=== PATIENT | male | born 1980 | race Caucasian/White ===

== ENCOUNTER 2019-08-09 02:43 | Emergency (ER) | payer BC ==
[2019-08-09] MEDS ORDERED: Diphtheria,Pertussis(Acell),Tetanus Vaccine 0.5 ML Syringe IM ONE (02:47)
[2019-08-09] MEDS ORDERED: ceFAZolin 1 GM Vial IM ONE (02:47)
--- NOTE | 2019-08-09 02:52 | EDM.PDOC ---
ED HPI GENERAL MEDICAL PROBLEM - General Chief Complaint: Skin Complaint Stated Complaint: PUNCTURE WOUND IN LEFT HAND Time Seen by Provider: 08/09/19 02:50 - History of Present Illness INITIAL COMMENTS - FREE TEXT/NARRATIVE: HISTORY AND PHYSICAL: History of present illness: Patient 39-year-old male presents status post left hand injury that occurred from a cathode washer is a solitary wound to the dorsal aspect of his left hand. He denies other trauma concern tetanus status is to be determined Review of systems: As per history of present illness and below otherwise all systems reviewed and negative. Past medical history: As per history of present illness and as reviewed below otherwise noncontributory. Surgical history: As per history of present illness and as reviewed below otherwise noncontributory. Social history: No reported history of drug or alcohol abuse. Family history: As per history of present illness and as reviewed below otherwise noncontributory. Physical exam: HEENT: Atraumatic, normocephalic, pupils reactive, negative for conjunctival pallor or scleral icterus, mucous membranes moist, throat clear, neck supple, nontender, trachea midline. Lungs: Clear to auscultation, breath sounds equal bilaterally, chest nontender. Heart: S1S2, regular, negative for clicks, rubs, or JVD. Abdomen: Soft, nondistended, nontender. Negative for masses or hepatosplenomegaly. Negative for costovertebral tenderness. Pelvis: Stable nontender. Genitourinary: Deferred. Rectal: Deferred. Extremities: Isolated wound noted on the dorsal aspect just inferior to the first interdigital space this wound is approximately 2 mm there is good hemostasis noted tendon dysfunction no significant edema noted at this time CMS neurovascular exam is unremarkable Neuro: Awake, alert, oriented. Cranial nerves II through XII unremarkable. Cerebellum unremarkable. Motor and sensory unremarkable throughout. Exam nonfocal. Diagnostics: X-ray left hand Therapeutics: Tetanus was updated Ancef 1 g was given IM wound was irrigated with copious amounts 0.9 normal saline and dressed with a occlusive universal hand dressing Impression: #1 left hand injury Definitive disposition and diagnosis as appropriate pending reevaluation and review of above. - Related Data Allergies Allergy/AdvReac Type Severity Reaction Status Date / Time No Known Allergies Allergy Verified 08/09/19 02:55 Home Meds: Home Meds . [No Known Home Meds] 08/09/19 [History] ED ROS GENERAL - Review of Systems Review Of Systems: ROS reveals no pertinent complaints other than HPI. ED EXAM, SKIN/RASH Exam: See Below (See dictation) Course - Vital Signs Last Recorded V/S: Last Vital Signs Temp 36.3 C 08/09/19 02:43 Pulse 91 08/09/19 02:43 Resp 18 08/09/19 02:43 BP 137/77 08/09/19 02:43 Pulse Ox 96 08/09/19 02:43 - Orders/Labs/Meds Orders: Active Orders 24 hr Category Date Time Status Vaccines to be Administered [RC] PER UNIT ROUTINE Care 08/09/19 02:47 Active Hand Comp Min 3V Lt [CR] Stat Exams 08/09/19 02:51 Taken Meds: Medications Discontinued Medications Generic Name Dose Route Start Last Admin Trade Name Bruce PRN Reason Stop Dose Admin Cefazolin Sodium 1 gm 08/09/19 02:47 08/09/19 03:13 Ancef IM 08/09/19 02:48 1 gm ONETIME ONE Administration Diphtheria/Tetanus/Acell Pertussis 0.5 ml 08/09/19 02:47 08/09/19 03:10 Adacel IM 08/09/19 02:48 0.5 ml .ONCE ONE Administration Sterile Water Confirm 08/09/19 02:55 08/09/19 03:14 Sterile Water For Injection Administered 08/09/19 02:56 2.5 mls/hr Dose Administration 20 mls @ as directed .ROUTE .STK-MED ONE Departure - Departure Time of Disposition: 03:37 Disposition: Home, Self-Care 01 Condition: Good Clinical Impression: Hand injury - Discharge Information Forms: ED Department Discharge Additional Instructions: The following information is given to patients seen in the emergency department who are being discharged to home. This information is to outline your options for follow-up care. We provide all patients seen in our emergency department with a follow-up referral. The need for follow-up, as well as the timing and circumstances, are variable depending upon the specifics of your emergency department visit. If you don't have a primary care physician on staff, we will provide you with a referral. We always advise you to contact your personal physician following an emergency department visit to inform them of the circumstance of the visit and for follow-up with them and/or the need for any referrals to a consulting specialist. The emergency department will also refer you to a specialist when appropriate. This referral assures that you have the opportunity for followup care with a specialist. All of these measure are taken in an effort to provide you with optimal care, which includes your followup. Under all circumstances we always encourage you to contact your private physician who remains a resource for coordinating your care. When calling for followup care, please make the office aware that this follow-up is from your recent emergency room visit. If for any reason you are refused follow-up, please contact the [facility] emergency department at and asked to speak to the emergency department charge nurse. [facility] [address] [place] [address], [address] [place] [address] Elevation sling as directed Keflex as prescribed follow-up Gen. surgery above return as needed as discussed - My Orders Last 24 Hours: My Active Orders 08/09/19 02:47 Vaccines to be Administered [RC] PER UNIT ROUTINE 08/09/19 02:51 Hand Comp Min 3V Lt [CR] Stat - Assessment/Plan Last 24 Hours: My Active Orders 08/09/19 02:47 Vaccines to be Administered [RC] PER UNIT ROUTINE 08/09/19 02:51 Hand Comp Min 3V Lt [CR] Stat
[2019-08-09] MEDS ORDERED: Water For Injection, Sterile 20 ML ONE (02:55)
--- NOTE | 2019-08-09 03:48 | CR ---
Indication: Injury Technique: Four views of the left hand Comparison: None available Findings: Bones: No displaced fracture or dislocation. An ovoid ossific density projecting anterior to the metacarpal bases on the 3rd view is presumably projectional. A mildly shortened 4th metacarpal which could be developmental or related to old trauma. Joint spaces: Unremarkable. Soft tissues: Mild dorsal soft tissue swelling. Impression: No acute fracture or dislocation seen. Dictated by Lalit Reza MD @ 08/09/2019 3:47:33 AM Dictated by: Lalit Reza MD @ 08/09/2019 03:47:38 (Electronically Signed)
== END 2019-08-09 03:45 | disposition home or self-care (01) ==
LOC: MW.ED 02:43
DX: S69.92XA Unspecified injury of left wrist, hand and finger(s), initial encounter (principal); S61.402A Unspecified open wound of left hand, initial encounter; Z23 Encounter for immunization; W22.8XXA Striking against or struck by other objects, initial encounter
CPT/HCPCS: 73130; 90471; 90715; 99283; J0690

== ENCOUNTER 2019-08-10 01:02 | Emergency (ER) | payer BC ==
--- NOTE | 2019-08-10 01:31 | EDM.PDOC ---
ED HPI GENERAL MEDICAL PROBLEM - General Chief Complaint: Upper Extremity Injury/Pain Stated Complaint: FOLLOW UP- PUNCTURE WOUND LEFT HAND Time Seen by Provider: 08/10/19 01:12 - History of Present Illness INITIAL COMMENTS - FREE TEXT/NARRATIVE: HISTORY AND PHYSICAL: History of present illness: The patient is a 39-year-old male who was seen here in the emergency department about 24 hours ago after sustaining a cloth washer back tender injury to the left hand. The patient had an x-ray which was within normal limits and was given Ancef as well as Keflex for home and an updated tetanus. The wound was only about 2 mm and it was more an area of excoriation seen in the first webspace of the dorsal aspect of the left hand and there was no evidence of any tendon deficits. The patient was given hand referral and says that he did not contact and get an appointment and he has been taking his antibiotics. He was given a sling and told to keep it elevated and he says he has been elevating it but he did go to work tonight and he has not been using a sling. He is concerned because the area of excoriation has worsened and there is more redness and swelling to the dorsal aspect of his left hand extending to his wrist. There is no streaking up his arm and there is no deficits in function of the fingers or hand other than due to the soft tissue swelling. The patient is concerned that the antibiotics are not working and that care. He has not had any fevers chills or other systemic planes and has been eating and drinking normally. The patient is right- hand dominant The patient tells me that the cloth washer back tender he was using yesterday had recycled water but no chemicals were in the water Review of systems: As per history of present illness and below otherwise all systems reviewed and negative. Past medical history: As per history of present illness and as reviewed below otherwise noncontributory. Surgical history: As per history of present illness and as reviewed below otherwise noncontributory. Social history: No reported history of drug or alcohol abuse. Family history: As per history of present illness and as reviewed below otherwise noncontributory. Physical exam: General: Well-developed well-nourished man who is nontoxic and vital signs are noted by me HEENT: Atraumatic, normocephalic, negative for conjunctival pallor or scleral icterus, mucous membranes moist, throat clear, neck supple, nontender, trachea midline. Lungs: Clear to auscultation, breath sounds equal bilaterally, chest nontender. Heart: S1S2, regular rate and rhythm no overt murmurs Abdomen: Soft, nondistended, nontender. NABS Pelvis: Deferred Genitourinary: Deferred. Rectal: Deferred. Extremities: Atraumatic, and full range of motion of all extremities with the exception of the left hand. At the dorsal aspect of the left hand near the first interdigital space there is an area of superficial excoriation seen without any deficit and there is soft tissue swelling noted on the dorsal aspect of the hand. There is erythema without warmth that extends over the entire area of the dorsal aspect of the hand but is not circumferential and does extend just proximal to the wrist . The patient can extend against resistance without deficits and there is no palpable crepitus or defects or deformities. The patient can flex the fingers and make a fist but there is some discomfort and inhibition due to the swelling and the tension. The patient had a Band-Aid on the wound which showed some serosanguineous drainage. The patient has no proximal lymphadenopathy on the left side. Neurovascular unremarkable. Neuro: Awake, alert, oriented. Cranial nerves II through XII unremarkable. Cerebellum unremarkable. Motor and sensory unremarkable throughout. Exam nonfocal. Diagnostics: CBC repeat hand x-ray Therapeutics: 0156: Case was discussed with a hand specialist Dr. Coon credit administration manager at [facility]. He agrees that the patient should have his antibiotics changed and that if it progresses more over the next 24 hours that he should just come to my not and be seen in the emergency department. I will give the patient Dr. Coon information and Dr. Coon said he would see him in the clinic for follow-up and he needs to call for that appointment. The patient also needs to not use the hand and elevated as much as possible. The patient will be told to stop the Keflex and to start the new antibiotics, Augmentin Impression: Reevaluation of left hand injury, progression of cellulitis Definitive disposition and diagnosis as appropriate pending reevaluation and review of above. left hand Pain Score (Numeric/FACES): 3 - Related Data Allergies Allergy/AdvReac Type Severity Reaction Status Date / Time No Known Allergies Allergy Verified 08/10/19 01:07 Home Meds: Home Meds . [No Known Home Meds] 08/09/19 [History] Past Medical History - Past Health History Medical/Surgical History: Denies Medical/Surgical History - Past Surgical History Musculoskeletal Surgical History: Reports: Other (See Below) Other Musculoskeletal Surgeries/Procedures:: Right knee sx (MCL) Social & Family History - Family History Family Medical History: Noncontributory - Tobacco Use Smoking Status *Q: Never Smoker - Recreational Drug Use Recreational Drug Use: No Review of Systems - Review of Systems Review Of Systems: ROS reveals no pertinent complaints other than HPI. ED EXAM, GENERAL - Physical Exam Exam: See Below (See dictation) Course - Vital Signs Last Recorded V/S: Last Vital Signs Temp 36.1 C 08/10/19 01:10 Pulse 85 08/10/19 01:10 Resp 18 08/10/19 01:10 BP 130/78 08/10/19 01:10 Pulse Ox 97 08/10/19 01:10 - Orders/Labs/Meds Labs: Laboratory Tests 08/10/19 Range/Units 01:33 WBC 8.73 (4.0-11.0) K/uL RBC 4.74 (4.50-5.90) M/uL Hgb 15.0 (13.0-17.0) g/dL Hct 43.0 (38.0-50.0) % MCV 90.7 (80.0-98.0) fL MCH 31.6 (27.0-32.0) pg MCHC 34.9 (31.0-37.0) g/dL RDW Std Deviation 40.4 (28.0-62.0) fl RDW Coeff of Hong 12 (11.0-15.0) % Plt Count 214 (150-400) K/uL MPV 9.80 (7.40-12.00) fL Neut % (Auto) 74.7 (48.0-80.0) % Lymph % (Auto) 13.4 L (16.0-40.0) % Burnett % (Auto) 10.1 (0.0-15.0) % Eos % (Auto) 1.5 (0.0-7.0) % Baso % (Auto) 0.3 (0.0-1.5) % Neut # (Auto) 6.5 H (1.4-5.7) K/uL Lymph # (Auto) 1.2 (0.6-2.4) K/uL Burnett # (Auto) 0.9 H (0.0-0.8) K/uL Eos # (Auto) 0.1 (0.0-0.7) K/uL Baso # (Auto) 0.0 (0.0-0.1) K/uL Departure - Departure Time of Disposition: 02:06 Disposition: Home, Self-Care 01 Condition: Good Clinical Impression: Cellulitis of hand, left Hand injury Qualifiers: Encounter type: subsequent encounter Laterality: left Qualified Code(s): S69.92XD - Unspecified injury of left wrist, hand and finger(s), subsequent encounter - Discharge Information Referrals: PCP,None [Primary Care Provider] - Forms: ED Department Discharge Additional Instructions: The following information is given to patients seen in the emergency department who are being discharged to home. This information is to outline your options for follow-up care. We provide all patients seen in our emergency department with a follow-up referral. The need for follow-up, as well as the timing and circumstances, are variable depending upon the specifics of your emergency department visit. If you don't have a primary care physician on staff, we will provide you with a referral. We always advise you to contact your personal physician following an emergency department visit to inform them of the circumstance of the visit and for follow-up with them and/or the need for any referrals to a consulting specialist. The emergency department will also refer you to a specialist when appropriate. This referral assures that you have the opportunity for followup care with a specialist. All of these measure are taken in an effort to provide you with optimal care, which includes your followup. Under all circumstances we always encourage you to contact your private physician who remains a resource for coordinating your care. When calling for followup care, please make the office aware that this follow-up is from your recent emergency room visit. If for any reason you are refused follow-up, please contact the [facility] emergency department at and ask to speak to the emergency department charge nurse. Dr Murillo & Dr Coon [place] [id number] [place] [address] Dr. Coon at [facility], the hand surgeon, was called and your case was discussed with him. He wants to have you stop taking the Keflex and start the new antibiotic, Augmentin as you have been prescribed this evening. You need to elevate the hand as much as possible and continue to monitor the redness swelling and drainage. Please call his clinic in the morning and make sure to tell them that Dr. Coon was contacted about you and does want to see you in his office. If the symptoms progress or worsen Dr. Coon wants to go to [place] [facility] to be reevaluated there he contacted. You can always return to our ER as needed and as discussed. Continue to use [id number] Tylenol or ibuprofen for pain management
--- NOTE | 2019-08-10 01:42 | CR ---
INDICATION: Hand pain and swelling TECHNIQUE: Hand radiograph 3 views left COMPARISON: 08/09/2019 FINDINGS: Bone: No acute fractures or aggressive bone lesions are identified. Mild negative ulnar variance by 3 mm is noted. Joint: The carpal and metacarpal-phalangeal joints are unremarkable in appearance. The interphalangeal joints are normal in appearance. Soft tissue: New moderate soft tissue swelling and edema is present along the dorsal hand without evidence of subcutaneous emphysema. No radiopaque foreign bodies are seen. IMPRESSIONS: 1. No acute osseous injuries or abnormalities are noted. 2. New moderate soft tissue swelling and edema is present along the dorsal hand without evidence of subcutaneous emphysema. Dictated by Finn Gtz MD @ 08/10/2019 1:40:35 AM Dictated by: Finn Gtz MD @ 08/10/2019 01:40:44 (Electronically Signed)
== END 2019-08-10 02:22 | disposition home or self-care (01) ==
LOC: MW.ED 01:02
DX: L03.114 Cellulitis of left upper limb (principal); S69.92XD Unspecified injury of left wrist, hand and finger(s), subsequent encounter; X58.XXXD Exposure to other specified factors, subsequent encounter
CPT/HCPCS: 36415; 73130-26-LT; 73130-LT; 85025; 99283-25